=== PATIENT | female | born 1985 | race American Indian/Alaskan Native ===

== ENCOUNTER 2017-12-18 11:50 | Emergency (ER) | payer OTHER ==
[2017-12-18 11:53] VITALS: BMI 22.3
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
[2017-12-18 13:41] VITALS: PULSE 80; RESP 16
--- NOTE | 2017-12-18 14:35 | RAD ---
Date of service: 12/18/2017 PROCEDURE: Cervical Spine Radiographs. HISTORY: Pain. COMPARISON: None. FINDINGS: BONES: Alignment maintained. No fracture. Dens Intact. DISC SPACES: Normal. SOFT TISSUES: Normal. No prevertebral soft tissue swelling. OTHER FINDINGS: None. IMPRESSION: Normal cervical spine radiographs
[2017-12-18 15:35] VITALS: BP 118/70; TEMP 98.7; O2SAT 97
--- NOTE | 2017-12-18 15:52 | RAD ---
Date of service: 12/18/2017 PROCEDURE: Right Wrist Radiographs. HISTORY: possible fracture COMPARISON: None. FINDINGS: BONES: Normal. No fracture. JOINTS: Normal. No dislocation. SOFT TISSUES: Normal. OTHER FINDINGS: None. IMPRESSION: Normal right wrist radiographs.
== END 2017-12-18 15:36 | disposition home or self-care (01) ==
LOC: ED 11:50
DX: S60.211A Contusion of right wrist, initial encounter (principal); Y08.89XA Assault by other specified means, initial encounter; Y92.9 Unspecified place or not applicable